=== PATIENT | male | born 1970 | race Caucasian/White ===

== ENCOUNTER 2018-10-27 09:08 | Emergency (ER) | payer MEDICARE, MEDICAID ==
[~2018-10-27] VITALS: Ht 185.4 cm; Wt 81.9 kg
[2018-10-27 09:27] VITALS: Ht 185.4 cm; Wt 81.9 kg
[2018-10-27 09:32] LABS: BASOPHILS 0.4 % (0-2); EOSINOPHILS 3.7 % (0-7); HEMATOCRIT 46.8 % (42.0-54.0); HEMOGLOBIN 16.3 g/dL (13.5-17.5); IMMATURE GRANULOCYTES 0.1 % (0-5); LYMPHOCYTES 31.5 % (15-50); MCH 32.3 pg (26.0-34.0); MCHC 34.8 g/dL (31.0-37.0); MCV 92.9 fL (80.0-100.0); MEAN PLATELET VOLUME 10.8 fL (7.4-10.4); MONOCYTES 7.2 % (2-11); NEUTROPHILS 57.1 % (40-80); PLATELET COUNT 186 10x3/uL (130-400); RBC 5.04 10x6/uL (4.20-6.10); RDW 13.3 % (11.5-14.5); WBC 8.9 10x3/uL (4.8-10.8)
[2018-10-27 09:37] LABS: APTT 26.3 SECONDS (22.8-39.4); INR 0.98 (0.85-1.17); PROTIME 12.5 SECONDS (11.6-15.0)
[2018-10-27 09:43] LABS: ALBUMIN 3.7 g/dL (3.4-5.0); ALKALINE PHOSPHATASE 73 U/L (46-116); ALT (SGPT) 23 U/L (10-68); BILIRUBIN - TOTAL 0.52 mg/dL (0.2-1.3); CALC OSMOLALITY 285 mosm/kg (275-300); CALCIUM 8.6 mg/dL (8.5-10.1); CARBON DIOXIDE 27.7 mmol/L (21.0-32.0); CHLORIDE - SERUM 103 mmol/L (98-107); CREATININE - SERUM 0.9 mg/dL (0.6-1.3); GLUCOSE 138 mg/dL (74-106); POTASSIUM - SERUM 3.8 mmol/L (3.5-5.1); PROTEIN - SERUM 6.9 g/dL (6.4-8.2); SODIUM 141 mmol/L (136-145); UREA NITROGEN 20 mg/dL (7-18); eGFR NON AFRICAN AMERICAN > 90 mL/min (90-120)
[2018-10-27 09:52] LABS: CKMB 1.2 U/L (0.0-3.6); CREATINE KINASE 120 UL (21-232); MAGNESIUM - SERUM 1.9 mg/dL (1.8-2.4); THYROID STIMULATING HORMONE 1.87 uIU/mL (0.36-3.74)
[2018-10-27 09:54] LABS: TROPONIN-I < 0.017 ng/mL (0.000-0.060)
[2018-10-27 11:00] VITALS: BP 112/71
== END 2018-10-27 10:56 | disposition other institution (70) ==
LOC: D.ER 09:08
PROVIDERS: Family Medicine
DX: I63.9 Cerebral infarction, unspecified (principal); R47.01 Aphasia

== ENCOUNTER 2019-03-31 10:51 | Emergency (ER) | payer MEDICARE, MEDICAID ==
[~2019-03-31] VITALS: Ht 185.4 cm; Wt 88.6 kg
[2019-03-31 11:10] VITALS: BP 136/87; Ht 185.4 cm; Wt 88.6 kg
[2019-03-31] MEDS ORDERED: ASPIRIN81 MG PO (11:13)
[2019-03-31 11:41] LABS: EOSINOPHILS 1.9 % (0-7); HEMATOCRIT 45.5 % (42.0-54.0); HEMOGLOBIN 15.4 g/dL (13.5-17.5); IMMATURE GRANULOCYTES 0.3 % (0-5); LYMPHOCYTES 26.1 % (15-50); MCH 31.8 pg (26.0-34.0); MCHC 33.8 g/dL (31.0-37.0); MEAN PLATELET VOLUME 11.1 fL (7.4-10.4); MONOCYTES 7.1 % (2-11); NEUTROPHILS 63.6 % (40-80); PLATELET COUNT 161 10x3/uL (130-400); RBC 4.84 10x6/uL (4.20-6.10); RDW 12.6 % (11.5-14.5); WBC 5.8 10x3/uL (4.8-10.8)
[2019-03-31 11:47] LABS: CALC OSMOLALITY 278 mosm/kg (275-300); CALCIUM 9.5 mg/dL (8.5-10.1); CARBON DIOXIDE 31.6 mmol/L (21.0-32.0); CHLORIDE - SERUM 104 mmol/L (98-107); CREATININE - SERUM 0.9 mg/dL (0.6-1.3); GLUCOSE 106 mg/dL (74-106); POTASSIUM - SERUM 4.2 mmol/L (3.5-5.1); SODIUM 140 mmol/L (136-145); UREA NITROGEN 13 mg/dL (7-18); eGFR NON AFRICAN AMERICAN > 90 mL/min (90-120)
[2019-03-31 11:53] LABS: ALBUMIN 4.6 g/dL (3.4-5.0); ALKALINE PHOSPHATASE 81 U/L (46-116); ALT (SGPT) 21 U/L (10-68); BILIRUBIN - TOTAL 0.46 mg/dL (0.2-1.3); PROTEIN - SERUM 7.9 g/dL (6.4-8.2)
[2019-03-31 13:19] LABS: APPEARANCE CLEAR (CLEAR); BILIRUBIN NEGATIVE (NEGATIVE); COLOR YELLOW (YELLOW); GLUCOSE NEGATIVE (NEGATIVE); KETONE NEGATIVE (NEGATIVE); NITRITE NEGATIVE (NEGATIVE); PROTEIN NEGATIVE (NEGATIVE); UROBILINOGEN NORMAL (NORMAL)
== END 2019-03-31 14:05 | disposition left against medical advice (07) ==
LOC: D.ER 10:51
PROVIDERS: Family Medicine
DX: K92.2 Gastrointestinal hemorrhage, unspecified (principal)